=== PATIENT | male | born 1945 | race Asian ===

== ENCOUNTER → 2017-05-17 | Outpatient (CLI) | payer MEDICARE, MEDICAID ==
[~2017-05-17] MED LIST: AMLO2.5T PO; ATOR10TA84 PO; GABA-529 PO; LEVO25TA9 PO; LISI-662 PO; LOSA25TA21 PO; METF500T4 PO; METO25 PO
== END | disposition home or self-care (01) ==
LOC: LABPV 13:07
PROVIDERS: ATTEND Internal Medicine Pulmonary Disease
DX: J47.9 Bronchiectasis, uncomplicated (principal); J98.8 Other specified respiratory disorders
CPT/HCPCS: 86171; 86331; 86480

== ENCOUNTER → 2017-06-28 | Outpatient (CLI) | payer MEDICARE, MEDICAID | END | disposition home or self-care (01) | LOC: RADPV 08:44 | PROVIDERS: ATTEND Internal Medicine Nephrology | DX: K80.20 Calculus of gallbladder without cholecystitis without obstruction (principal); N28.1 Cyst of kidney, acquired | CPT/HCPCS: 76700 ==

== ENCOUNTER 2018-05-16 06:09 | Day surgery (SDC) | payer MEDICARE, MEDICAID ==
[~2018-05-16] VITALS: Ht 162.6 cm; Wt 75.0 kg
[~2018-05-16 06:09] MED LIST changes: +FOSI40TA4 PO; -METF500T4 PO; +METF500T6 PO; +METO-558 PO; +OMEP20 PO; +PRED10 PO; +SIMV-261 PO; +SITA50 PO; +SODIUM CHLORIDE 0.9% 500 ML IV ONE; +TELM40 PO
[2018-05-16] MEDS ORDERED: MIDAZOLAM HCL 2 MG/2 ML VIAL IVP ONE (06:10)
[2018-05-16] MEDS ORDERED: DICLOFENAC SODIUM 0.1% 2.5 ML OPHTHALMIC SOLUTION ONE (06:15)
[2018-05-16] MEDS ORDERED: TROPICAMIDE 1% 2 ML OPHTHALMIC SOLUTION ONE (06:15)
[2018-05-16] MEDS ORDERED: RINGERS SOLUTION,LACTATED 500 ML IV ONE ×2 (06:15→07:00)
[2018-05-16] MEDS ORDERED: MOXIFLOXACIN HCL 0.5% 3 ML OPHTHALMIC SOLUTION ONE (06:15)
[2018-05-16] MEDS ORDERED: PHENYLEPHRINE HCL 2.5% 2 ML OPHTHALMIC SOLUTION ONE (06:16)
[2018-05-16] MEDS ORDERED: DICLOFENAC SODIUM 0.1% 2.5 ML OPHTHALMIC SOLUTION OD ONE (06:30)
[2018-05-16] MEDS ORDERED: MOXIFLOXACIN HCL 0.5% 3 ML OPHTHALMIC SOLUTION OD ONE (06:30)
[2018-05-16] MEDS: TROPICAMIDE 1% 2 ML OPHTHALMIC SOLUTION OD SCH ×2 (06:51→06:57)
[2018-05-16] MEDS: PHENYLEPHRINE HCL 2.5% 2 ML OPHTHALMIC SOLUTION OD SCH ×2 (06:52→06:57)
[2018-05-16 06:53] LABS: GLUCOMETER DEV NAME(LOC) SDS 5; GLUCOSE,POINT OF CARE 117 MG/DL (70-110)
[2018-05-16] MEDS ORDERED: POVIDONE-IODINE 10% 15 ML SOLUTION UD ONE (21:44)
[2018-05-16] MEDS ORDERED: TETRACAINE HCL VISCOUS 0.5% 0.6 ML OPHTHALMIC SOLUTION ONE (21:44)
[2018-05-16] MEDS ORDERED: HYALURONATE SODIUM 12 MG/ML 0.8 ML SYRINGE IO ONE (21:44)
[2018-05-16] MEDS ORDERED: HYALURONATE SOD/CHONDROITIN SOD 0.5 ML VIAL IO ONE (21:44)
[2018-05-16] MEDS ORDERED: LIDOCAINE HCL 1% 20 ML VIAL ONE (21:44)
[2018-05-16] MEDS ORDERED: DEXAMETHASONE SOD PHOS 4 MG/ML VIAL ONE (21:44)
== END 2018-05-16 10:15 | disposition home or self-care (01) ==
LOC: SURGERY 06:09
PROVIDERS: ATTEND Specialist
DX: E11.36 Type 2 diabetes mellitus with diabetic cataract (principal); H25.011 Cortical age-related cataract, right eye; E11.22 Type 2 diabetes mellitus with diabetic chronic kidney disease; I13.0 Hypertensive heart and chronic kidney disease with heart failure and stage 1 through stage 4 chronic kidney disease, or unspecified chronic kidney disease; N18.9 Chronic kidney disease, unspecified; I50.9 Heart failure, unspecified; E78.00 Pure hypercholesterolemia, unspecified; G47.33 Obstructive sleep apnea (adult) (pediatric); E03.9 Hypothyroidism, unspecified; Z79.84 Long term (current) use of oral hypoglycemic drugs; Z87.891 Personal history of nicotine dependence; Z79.891 Long term (current) use of opiate analgesic; Z79.899 Other long term (current) drug therapy; Z98.890 Other specified postprocedural states
CPT/HCPCS: 65785; 93005; J1100; J2250; J3490; J7120